=== PATIENT | male | born 1940 | race Caucasian/White ===

== ENCOUNTER → 2017-10-09 | Outpatient (CLI) | payer MEDICARE, OTHER | LOC: COL.RAD 14:45 | DX: R59.0 Localized enlarged lymph nodes (principal); E04.1 Nontoxic single thyroid nodule; Z98.890 Other specified postprocedural states | CPT/HCPCS: A9585 ==

== ENCOUNTER 2018-12-09 10:15 | Outpatient (CLI) | payer MEDICARE, OTHER ==
[~2018-12-09] VITALS: Ht 172.7 cm; Wt 85.0 kg
[2018-12-09] MEDS ORDERED: LIPITOR 80MG80 MG PO (10:26)
[2018-12-09] MEDS ORDERED: PRINIVIL20 MG PO (10:27)
[2018-12-09] MEDS ORDERED: ELIQUIS 5MG PO (10:27)
[2018-12-09] MEDS ORDERED: ASPIRIN E.C. 8181 MG PO (10:29)
[2018-12-09] MEDS ORDERED: ALEVE 220MG220 MG PO (10:30)
[2018-12-09] MEDS ORDERED: FLEXERIL5 MG PO (10:32)
[2018-12-09] MEDS ORDERED: NITROSTAT0.4 MG/TAB SL (10:33)
[2018-12-09 10:39] VITALS: BP 144/86; PULSE 69; TEMP 97.7
== END 2018-12-09 12:37 | disposition home or self-care (01) ==
LOC: SDCO 10:15 → COL.CAR 10:15
DX: M54.9 Dorsalgia, unspecified (principal); I25.10 Atherosclerotic heart disease of native coronary artery without angina pectoris; I10 Essential (primary) hypertension; Z87.442 Personal history of urinary calculi; Z85.46 Personal history of malignant neoplasm of prostate; Z85.828 Personal history of other malignant neoplasm of skin; Z90.49 Acquired absence of other specified parts of digestive tract; Z90.79 Acquired absence of other genital organ(s); Z95.0 Presence of cardiac pacemaker; Z98.61 Coronary angioplasty status; Z88.3 Allergy status to other anti-infective agents; Z91.041 Radiographic dye allergy status; Z79.82 Long term (current) use of aspirin; Z79.02 Long term (current) use of antithrombotics/antiplatelets

== ENCOUNTER 2018-12-13 05:52 | Outpatient (CLI) | payer MEDICARE, OTHER ==
[2018-12-13] VITALS (11 sets, daily range): BP systolic 104–125; BP diastolic 66–89; PULSE 56–76; TEMP 97.8
[~2018-12-13] VITALS: Ht 172.7 cm; Wt 85.4 kg
[~2018-12-13 05:52] MED LIST: ALEVE 220MG220 MG PO; ASPIRIN E.C. 8181 MG PO; ELIQUIS 5MG PO; FLEXERIL5 MG PO; LIPITOR 80MG80 MG PO; NITROSTAT0.4 MG/TAB SL; PRINIVIL20 MG PO
--- NOTE | 2018-12-13 07:41 | NUR ---
Pt to procedure,report to Ramesh Daley.
--- NOTE | 2018-12-13 08:17 | NUR ---
SEE IVETTE FOR ALL MEDICATION ADMINISTRATION TIMES AND INTRA AND POST SEDATION ASSESSEMENTS.
--- NOTE | 2018-12-13 08:51 | NUR ---
Report received from Ramesh Daley to Ramesh Gordon orientee.
--- NOTE | 2018-12-13 10:02 | NUR ---
Pt resting comfortably on stretcher, he has been lying supine and now is awake and raised his hob to look at menu. PT denies any back pain, reports mild anterior rib pain that he attributes to coughing alot yesterday. pt now resting on 2l/nc satting 96%, he required 3l/nc upon return from procedure. plan to increase activity as tolerated and provide some food.
--- NOTE | 2018-12-13 12:00 | NUR ---
Dr Floyd in to see pt.Discharge instructions reviewed by Ramesh Villela.INT removed by Ramesh Villela.
--- NOTE | 2018-12-13 12:04 | NUR ---
Pt escorted out via wheelchair by Ramesh Villela.
--- NOTE | 2018-12-13 13:06 | NUR ---
Pt sitting at edge of bed ready for discharge. MD in to see pt, he gave patient a hand written note for release to work in 1 week. There was some bloody drainage on the two bandaids on pt's back, these were replaced with new bandaids. IV to LAC was dc'd, catheter was intact, no problems noted. PT able to put on his own shoes, reports pain in upper back improved since procedure. 94% on room air at time of departure. to exit in a wheelchair for transport home by his daughter.
== END 2018-12-13 13:22 | disposition home or self-care (01) ==
LOC: COL.CAR 05:52
DX: S22.060A Wedge compression fracture of T7-T8 vertebra, initial encounter for closed fracture (principal); Z90.49 Acquired absence of other specified parts of digestive tract; Z95.1 Presence of aortocoronary bypass graft; Z95.0 Presence of cardiac pacemaker; Z86.711 Personal history of pulmonary embolism; Z87.891 Personal history of nicotine dependence; Z88.3 Allergy status to other anti-infective agents
CPT/HCPCS: J2250; J3010; J7120

== ENCOUNTER 2021-01-23 10:26 | Emergency (ER) | payer MEDICARE, OTHER ==
[~2021-01-23] VITALS: Ht 172.7 cm; Wt 73.6 kg
[2021-01-23 10:37] VITALS: BP 135/90; TEMP 98
[2021-01-23 11:34] VITALS: PULSE 70
== END 2021-01-23 11:34 | disposition home or self-care (01) ==
LOC: COL.ER 10:26
DX: K94.23 Gastrostomy malfunction (principal); Z90.49 Acquired absence of other specified parts of digestive tract; Z87.891 Personal history of nicotine dependence
CPT/HCPCS: 31007

== ENCOUNTER 2021-06-01 13:07 | Emergency (ER) | payer MEDICARE, OTHER, MEDICAID ==
[~2021-06-01] VITALS: Ht 170.2 cm; Wt 75.0 kg
[2021-06-01 15:34] VITALS: BP 155/91; PULSE 75; TEMP 98
== END 2021-06-01 15:39 | disposition home or self-care (01) ==
LOC: COL.ER 13:07
DX: K94.20 Gastrostomy complication, unspecified (principal)